=== PATIENT | male | born 1960 | race Caucasian/White ===

== ENCOUNTER → 2017-09-29 14:27 | Outpatient (CLI) | payer OTHER, SELFPAY ==
--- NOTE | 2017-09-29 14:53 | RAD_ITS ---
STUDY: X-RAY - LEFT HAND REASON FOR EXAM: Male, 57 years old. Second metacarpal phalangeal joint pain a few weeks post injury. TECHNIQUE: 3 view(s) of the hand. COMPARISON: None. FINDINGS: Normal radiocarpal articulation. Normal distal radioulnar joint. Normal visualized carpal bones. Normal carpal articulations Normal carpometacarpal articulation of the thumb. Normal second through fifth carpometacarpal joints. Normal metacarpi. Normal metacarpophalangeal joint of the thumb. Normal interphalangeal joint of the thumb. Normal proximal and distal phalanges of the thumb. Normal metacarpophalangeal joints of the second through fifth fingers. Normal proximal and distal interphalangeal joints of the second through fifth fingers. Normal phalanges of the second through fifth fingers. The soft tissue structures are unremarkable. There is no demonstrated fracture. RAD/Hand Min 3 Views IMPRESSION: Normal x-ray examination of the left hand. Electronically Signed: Gio Freitas MD at 19:14 EDT , Service support ,
== END ==
PROVIDERS: Family Provider Internal Medicine; PCP Internal Medicine; Visit Provider Internal Medicine
DX: M79.642 Pain in left hand (principal)
CPT/HCPCS: 73130

== ENCOUNTER → 2017-11-23 15:10 | Outpatient (CLI) | payer OTHER, SELFPAY ==
[2017-11-23 18:02] LABS: Thyroid Stim Hormone (TSH) 5.15 uIU/mL (0.358-3.74)
== END ==
PROVIDERS: Family Provider Internal Medicine; PCP Internal Medicine; Visit Provider Internal Medicine
DX: E03.9 Hypothyroidism, unspecified (principal)
CPT/HCPCS: 36415; 84443

== ENCOUNTER → 2019-03-24 06:33 | Outpatient (CLI) | payer OTHER, SELFPAY ==
--- NOTE | 2019-03-25 13:49 | STRESSREP ---
Stress Test Report Date: 03/25/2019 Procedure: Exercise tolerance test/imaging study Indications: Chest pain Consent: Per the patient Procedure: The patient exercised on a Alex protocol for 10 minutes achieving a peak heart rate of 166 bpm (102 % predicted maximal heart rate) with a peak blood pressure 164/76 mmHg and a peak MET capacity of 11.6 METs. The baseline ECG demonstrated normal sinus rhythm. The peak exercise ECG demonstrated no significant ischemic changes. EKG during recovery revealed no significant ischemic changes [There were no cardiac dysrhythmias pretest, during exercise, or recovery]. The functional capacity was considered excellent for age. There was [no complaint of chest discomfort during exercise or recovery]. The examination was discontinued secondary to calf pain. Impression: 1. Technically adequate (percent predicted maximal heart rate greater than 85%) exercise tolerance test 2. Stress test is negative for exercise-induced EKG changes of ischemia 3. The test test is negative for exercise-induced chest pain 4. Functional capacity is excellent for age 5. Nuclear images pending Myocardial perfusion imaging study: Technique: The patient was injected with 10 mCi of technetium 99m Cardiolite and subsequently rest SPECT Cardiolite nuclear imaging was obtained in the horizontal long, vertical long, and short axis views. The patient exercised on a Alex protocol. Please see above for details. The patient was injected with 36 mCi of technetium 99m Cardiolite and subsequently stress SPECT Cardiolite nuclear imaging was obtained in the horizontal long, vertical long, and short axis views. A gated Cardiolite study at peak stress was obtained. Interpretation: Rest and stress SPECT Cardiolite nuclear imaging status post realignment, normalization, and attenuation correction, demonstrates normal myocardial radioisotope uptake at rest. On the stress images there is mildly decreased radioisotope uptake in the apex. This is suggestive of mild apical ischemia. The gated Cardiolite study demonstrates mild apical hypokinesis. The reported LVEF is 54 %. Impression: 1. There is mild apical ischemia. 2. The gated Cardiolite study reports an LVEF of 54 %. This note was generated with [employer] software. It may contain incorrect words, spelling, and punctuation that were not noted in checking the note before signing.
== END ==
PROVIDERS: Family Provider Internal Medicine; PCP Internal Medicine; Referring Provider Internal Medicine; Visit Provider Internal Medicine
DX: R07.9 Chest pain, unspecified (principal)
CPT/HCPCS: 78452; 93017; A9500; A4216

== ENCOUNTER → 2019-04-11 15:06 | Outpatient (CLI) | payer OTHER, SELFPAY ==
[2019-04-11 17:32] LABS: Absolute Neutrophil Count 4.8 X10^3/uL (2.0-7.7); Basophil# 0.05 X10^3/uL; Basophil% 0.7 % (0-1); Eosinophil# 0.14 X10^3/uL; Hematocrit 38.8 % (40-54); Hemoglobin 12.5 g/dL (13.0-16.5); Lymphocyte % 21.2 % (19-41); Mean Corp Hgb Conc 32.2 g/dL (32-36); Mean Platelet Vol. 11.2 fl (6.2-12.0); Monocyte# 0.58 X10^3/uL; Monocyte% 8.2 % (0-10); NRBC Flagged by Analyzer 0 % (0-5); Neutrophil # 4.79 X10^3/uL (2.7-7.7); Neutrophil % 67.6 % (47-70); Platelet Count 229 K/mm3 (150-450); RBC Distribution Width SD 42.9 fl (35.1-43.9); Red Blood Count 4.31 M/mm3 (4.6-6.2); White Blood Count 7.1 K/mm3 (4.4-11.0)
[2019-04-11 17:52] LABS: Thyroid Stim Hormone (TSH) 6.21 uIU/mL (0.358-3.74)
== END ==
PROVIDERS: Family Provider Internal Medicine; PCP Internal Medicine; Referring Provider Internal Medicine; Visit Provider Internal Medicine
DX: E03.9 Hypothyroidism, unspecified (principal); D64.9 Anemia, unspecified
CPT/HCPCS: 36415; 84443; 85025

== ENCOUNTER → 2019-05-26 09:34 | Outpatient (CLI) | payer OTHER, SELFPAY ==
[2019-04-25 15:18] VITALS: BMI 29.4
--- NOTE | 2019-05-26 09:34 | STE_ITS ---
Reason For Study: ABN NUCLEAR STRESS, CHEST PAIN Stress Results Protocol: Stress Echocardiogram Maximum Predicted HR: 161 bpm Target HR: 137 bpm % Maximum Predicted HR: 103 % DurationHeart Rate Stage (mm:ss) (bpm) BP Comment BASELINE 56 114/74 STUART PROTOCOL- STAGE 1 3:00 93 132/80NO SX TSUART PROTOCOL- STAGE 2 3:00 107 134/80NO SX STUART PROTOCOL- STAGE 3 3:00 130 144/82NO SX STUART PROTOCOL- STAGE 4 2:15 166 148/90LEG FATIGUE, NO CP RECOVERY 76 150/80 Stress Duration: 11:15 mm:ss Maximum Stress HR: 166 bpm Baseline Echocardiogram Findings The estimated ejection fraction is 60 %. Stress Echo Wall motion Data Resting WM Intermediate WM Stress WM Resting Wall Motion No regional wall motion abnormalities noted. EKG Data Normal Sinus rhythm. No significnat ischemic changes. Symptoms with Stress The patient experinced no chest pain . Interpretation Summary The estimated ejection fraction is 60 %. Stress echo is negative for stress induced CP or EKG or Echocardiographic changes of ischemia. Functional capacity is excellent for age. Ordering Physician: Do Herrera Referring Physician: Do Herrera Performed By: Olivia Sevilla, KIM, RVT
== END ==
PROVIDERS: Family Provider Internal Medicine; PCP Internal Medicine; Referring Provider Specialist; Visit Provider Specialist
DX: E78.5 Hyperlipidemia, unspecified (principal); R07.9 Chest pain, unspecified; R94.39 Abnormal result of other cardiovascular function study
CPT/HCPCS: 93017; 93350

== ENCOUNTER 2021-06-20 15:42 | Outpatient (CLI) | payer BC, SELFPAY ==
[2021-06-20 17:43] LABS: Absolute Lymphocyte Count 1.57 X10^3/uL (0.83-4.51); Absolute Neutrophil Count 3.6 X10^3/uL (2.0-7.7); Basophil# 0.05 X10^3/uL; Basophil% 0.8 % (0-1); Eosinophil# 0.31 X10^3/uL; Eosinophils% 4.9 % (0-5); Hematocrit 36.3 % (40-54); Hemoglobin 11.9 g/dL (13.0-16.5); Lymphocyte # 1.57 X10^3/ul (0.83-4.51); Lymphocyte % 24.9 % (19-41); Mean Corp Hgb Conc 32.8 g/dL (32-36); Mean Corpuscular Hgb 28.6 pg (27.0-32.0); Mean Corpuscular Volume 87.3 fL (80-94); Mean Platelet Vol. 10.5 fl (6.2-12.0); Monocyte% 12.7 % (0-10); NRBC Flagged by Analyzer 0 % (0-5); Neutrophil # 3.56 X10^3/uL (2.7-7.7); Neutrophil % 56.5 % (47-70); Platelet Count 290 K/mm3 (150-450); RBC Distribution Width CV 12.1 % (11.6-14.6); RBC Distribution Width SD 39.2 fl (35.1-43.9); Red Blood Count 4.16 M/mm3 (4.6-6.2); White Blood Count 6.3 K/mm3 (4.4-11.0)
[2021-06-20 18:16] LABS: ALB/GLOB Ratio 1.1 RATIO (0.9-2.4); AST(SGOT) 16 U/L (15-37); Alanine Aminotransfer ALT/SGPT 25 U/L (16-61); Albumin, Serum 3.6 g/dL (3.2-5.0); Alkaline Phosphatase 62 U/L (45-117); Anion Gap 5 (5-15); BUN 19 mg/dL (7-18); BUN/Creat Ratio 18.1 RATIO (10-20); Chloride 107 mmol/L (98-107); Cholesterol 168 mg/dL (200); Creatinine, Serum 1.05 mg/dL (0.70-1.30); EST Glomerular Filtration Rate 76 mL/min (>60); Est Glom Filt Rate - Afr Amer 92 mL/min (>60); Globulin 3.2 g/dL (2.2-4.2); Glucose 85 mg/dL (74-106); High Density Lipoprotein 44 mg/dL; PSA,Total - Annual Screen 2.15 ng/mL (0.00-4.00); Potassium 4.4 mmol/L (3.5-5.1); Protein, Total 6.8 g/dL (6.4-8.2); Sodium Level 140 mmol/L (136-145); Thyroid Stim Hormone (TSH) 0.01 uIU/mL (0.358-3.74); Triglycerides 183 mg/dL; Very Low Density Lipoprotein 37 mg/dL (5-40)
[2021-06-22 11:08] LABS: LDL, Direct 120295 96 mg/dL (0-99)
== END 2021-06-20 23:59 | disposition short-term general hospital (02) ==
LOC: MTLAB 15:46
PROVIDERS: PCP Internal Medicine; Referring Provider Internal Medicine; Visit Provider Internal Medicine
DX: E03.9 Hypothyroidism, unspecified (principal); D64.9 Anemia, unspecified; E78.5 Hyperlipidemia, unspecified
CPT/HCPCS: 36415; 80053; 80061; 83721; 84153; 84443; 85025; G0103

== ENCOUNTER 2021-09-02 13:57 | Outpatient (CLI) | payer BC, SELFPAY ==
[2021-09-02 15:44] LABS: Thyroid Stim Hormone (TSH) 0.01 uIU/mL (0.358-3.74)
== END 2021-09-02 23:59 | disposition home or self-care (01) ==
LOC: MTLAB 13:58
PROVIDERS: PCP Internal Medicine; Referring Provider Internal Medicine; Visit Provider Internal Medicine
DX: E03.9 Hypothyroidism, unspecified (principal)
CPT/HCPCS: 36415; 84443

== ENCOUNTER 2021-09-02 15:39 | Outpatient (CLI) | payer BC, SELFPAY ==
[2021-09-02 16:02] LABS: Absolute Lymphocyte Count 1.54 X10^3/uL (0.83-4.51); Absolute Neutrophil Count 2.9 X10^3/uL (2.0-7.7); Basophil# 0.05 X10^3/uL; Basophil% 0.9 % (0-1); Eosinophil# 0.19 X10^3/uL; Eosinophils% 3.4 % (0-5); Lymphocyte # 1.54 X10^3/ul (0.83-4.51); Lymphocyte % 27.5 % (19-41); Mean Corp Hgb Conc 32.4 g/dL (32-36); Mean Corpuscular Hgb 27.4 pg (27.0-32.0); Mean Corpuscular Volume 84.5 fL (80-94); Mean Platelet Vol. 10.4 fl (6.2-12.0); Monocyte# 0.89 X10^3/uL; Monocyte% 15.9 % (0-10); NRBC Flagged by Analyzer 0 % (0-5); Neutrophil # 2.93 X10^3/uL (2.7-7.7); Neutrophil % 52.1 % (47-70); Platelet Count 249 K/mm3 (150-450); RBC Distribution Width CV 12.8 % (11.6-14.6); RBC Distribution Width SD 38.8 fl (35.1-43.9); RET-HE 31.4 pg (30-35); Red Blood Count 4.38 M/mm3 (4.6-6.2); Reticulocyte Count 0.97 % (0.5-1.5); White Blood Count 5.6 K/mm3 (4.4-11.0)
[2021-09-02 16:56] LABS: Anion Gap 4 (5-15); BUN 20 mg/dL (7-18); Calcium,Total 8.8 mg/dL (8.5-10.1); Chloride 106 mmol/L (98-107); Creatinine, Serum 1.05 mg/dL (0.70-1.30); EST Glomerular Filtration Rate 76 mL/min (>60); Est Glom Filt Rate - Afr Amer 92 mL/min (>60); Ferritin 8 ng/mL (26-388); Glucose 88 mg/dL (74-106); Iron 77 ug/dL (65-175); Iron Binding Capacity,Total 390 ug/dL (250-450); LDH 197 U/L (87-241); PERCENT IRON SATURATION 19.7 % (15.0-55.0); Potassium 4.1 mmol/L (3.5-5.1); Sodium Level 140 mmol/L (136-145)
== END 2021-09-02 23:59 | disposition home or self-care (01) ==
LOC: LAB 15:40
PROVIDERS: PCP Internal Medicine; Visit Provider Internal Medicine Gastroenterology
DX: D64.9 Anemia, unspecified (principal)
CPT/HCPCS: 36415; 80048; 82728; 83540; 83550; 83615; 85025; 85045

== ENCOUNTER 2021-09-26 10:33 | Day surgery (SDC) | payer BC, SELFPAY ==
[2021-09-26] VITALS (9 sets, daily range): BP systolic 87–130; BP diastolic 51–90; PULSE 51–71; RESP 16; TEMP 36.1–36.3; O2SAT 94–100; BMI 27.8
[2021-09-26] MEDS: Lactated Ringers 1,000 ML 15 ML IV (10:55)
--- NOTE | 2021-09-26 11:45 | COLBX_PTH ---
PATIENT: CHINYERE RIVERA LOC: EN U#:[id number] AGE/SX: 61/M ROOM: RE09/26/[address]: Dr. Ellis Flynn DO : 1960 BED: DIS: 09/26/2021 SPEC #: [id number] RECD: 09/26/21 13:15 STATUS: JAQUELIN RELisa #: [id number] LEANDRO: 09/26/21 11:[address]: Ellis Flynn DEPT: SURGICAL PATHOLOGY RECD BY: Trina Mahmood ENTERED: 09/26/21 13:40 SP TYPE: COLON BX OTHR DR: Lucho Gastelum Tissues: A - COLON BIOPSY B - Rectum, NOS Procedures: Surgery Specimen Level IV HEADER OPERATION: Colonoscopy (MAC) with biopsies PRE-OP DIAGNOSIS: Anemia TISSUE SUBMITTED: A ? Random colon biopsy, B ? Rectal polyp MICROSCOPIC DIAGNOSIS A. Colon, random biopsy: Active colitis. See comment. B. Rectal polyp, biopsy: Fragments of benign colonic mucosa. See comment. AM:neel 09/27/2021 COMMENT A. Sections show cryptitis, crypt abscesses and non-necrotizing granulomas. Fissuring ulcers are not seen. Transmural lymphoid aggregates are not present. Clinical correlation is necessary. B. Neither hyperplastic nor adenomatous change is seen. Clinical correlation is suggested. MICROSCOPIC DESCRIPTION Slides are reviewed. GROSS DESCRIPTION A - Received in fixative is one container labeled with the patient's name and designated random colon biopsy. The specimen consists of multiple irregular fragments of light haywood soft tissue that in aggregate measure 1.2 x 0.3 x 0.1 cm. The specimen is totally submitted in one cassette. B - Received in fixative is one container labeled with the patient's name and designated rectal polyp. The specimen consists of one irregular fragment of light haywood soft tissue that measures 0.3 x 0.3 x 0.1 cm. The specimen is totally submitted in one cassette. / SJ:neel 09/26/2021 TC:2 [facility]: [id number] x2
--- NOTE | 2021-09-26 12:00 | PCM.HP.BLA ---
History and Physical Date of Admission: 09/26/21 61 M who presents to the office today for Initial consultation. Tony established with this clinic 09.02.21 by suggestion of PCP. He has a history of anemia for which he follows with Dr. Anurag Toribio, colorectal surgeon with [facility] and hematology Dr. Russ with [facility]. Dr. Russ stopped iron supplement as he was not having anemic difficulties. Follows with Dr. Guevara for abnormal TSH, last draw . and dose reduced in . Additional medical history include hypothyroidism, sleep apnea, anxiety, constipation. Colonoscopy performed 07.07.11 and another in 2017 finding diverticulosis and a non-cancerous polyp, the second is reported by him to be normal. EGD performed 11.20.14 finding gastritis. Hemoglobin levels tend to fluctuate. Most recent hemoglobin 11.9 06.20.21. Denies black stools. Reports rectal bleeding with ?fresh blood on my stool? in . PCP thought it may be r/t hard stools or hemorrhoids. Hemorrhoid possibility evaluated and not an issue. Loose stools triggered by spicy foods. Reports normal stools most of the week with two hard stool a week that he does not feel needs to be addressed at this time. reports that he smells different, not able to pinpoint change. ROS Const Constitutional: No anorexia, fatigue, fever(s), weight change or sleep problems Eyes Eyes: No change in vision ENT ENT: No abnormal hearing, difficulty swallowing, mouth lesions, tongue swelling or throat swelling Resp Respiratory: No cough or shortness of breath Cardio Cardiology: No chest pain at rest, chest pain with exertion, shortness of breath or dyspnea on exertion Gastro GI: No difficulty swallowing Genitourinary Male: No difficulty urinating or burning urination Musc Musculoskeletal: No joint pain, joint swelling, muscle weakness or decreased muscle mass Skin Skin: No hair loss in leg, yellowing of the eye, itchy eyes, rash, skin ulcer or skin swelling Neuro Neurology: No abnormal hearing, abnormal movements, confusion, unsteady gait/balance or memory loss Psych Psychiatric: No anxiety, No confusion and No memory loss Endo Endocrine: No fatigue or weight change Aller/Imm Allergy/Immunologic: No itchy eyes, throat swelling or tongue swelling Augusto/Lymp Hematologic/Lymphatic: No easy bleeding, easy bruising or enlarged lymph nodes Exam Const General: cooperative and comfortable Nutritional Appearance: average body habitus and well nourished [facility] Head: normal to inspection Ears: hearing grossly normal bilaterally Nose: external nose normal Face and sinus: normal facial exam Mouth: oral mucosae normal Throat: posterior oropharynx normal Eyes General: appearance normal, both eyes and all related structures Neck Neck: normal visual inspection Chest Chest palpation & inspection: normal inspection of the chest and normal palpation of entire chest wall Resp Effort & Inspection: normal respiratory effort Auscultation: Bilateral: Clear to Auscultation Cardio Palpation: normal PMI Rate: regular rate Rhythm: regular rhythm GI Inspection: normal to inspection Auscultation: normal bowel sounds Percussion: normal to percussion Palpation: no hepatosplenomegaly Skin General: no rashes or lesions noted Neuro General: patient alert Extrem General: normal to inspection Psych Affect: normal affect Quality Reporting Tobacco Screening ([facility] 138) Smoking Status: Never smoker Assessment and Plan Assessment and Plan (1) Anemia: Status: Acute Orders: Orders: Basic Metabolic Profile (BMP) Today Ferritin Today Iron+Iron Binding Capacity Today LDH Today CBC W/Diff, Automated Today Retic Panel Count Today Plan - Dr. Corral Friend, DO: Diagnosis for his iron deficiency anemia is AVMs of the stomach, small bowel or colon. Peptic ulcer disease, neoplasia, H. pylori associated gastritis, celiac disease. Patient undergo EGD and colonoscopy for evaluation of his upper lower GI tract. He should also check ferritin, iron, TIBC, LDH, CBC with differential and reticulocyes. Patient also had some lower GI bleeding which I suspect is from either internal hemorrhoids or diverticular disease. We will evaluate the status colonoscopy. I have re-examined the patient. There are no clinical changes since date of exam.
--- NOTE | 2021-09-26 12:46 | OP.COLON_ITS ---
Patient Name: Tony Park Procedure Date: 09/26/2021 12:01 PM Date of : 1960 Age: 61 Procedure: Colonoscopy Indications: Screening for colorectal malignant neoplasm Providers: Ellis Flynn DO Medicines: Sedation Required Anesthesia Staff Assistance Patient Profile: This is a 61 year old male. Refer to note in patient chart for documentation of history and physical. Last Colonoscopy: several years ago. Complications: No immediate complications. Procedure: Pre-Anesthesia Assessment: - Prior to the procedure, a History and Physical was performed, and patient medications and allergies were reviewed. The patient is competent. The risks and benefits of the procedure and the sedation options and risks were discussed with the patient. All questions were answered and informed consent was obtained. Patient identification and proposed procedure were verified by the physician in the pre-procedure area. Mental Status Examination: alert and oriented. Airway Examination: normal oropharyngeal airway and neck mobility. Respiratory Examination: clear to auscultation. CV Examination: normal. Prophylactic Antibiotics: The patient does not require prophylactic antibiotics. Prior Anticoagulants: The patient has taken no previous anticoagulant or antiplatelet agents. After reviewing the risks and benefits, the patient was deemed in satisfactory condition to undergo the procedure. The anesthesia plan was to use moderate sedation / analgesia (conscious sedation). Immediately prior to administration of medications, the patient was re-assessed for adequacy to receive sedatives. The heart rate, respiratory rate, oxygen saturations, blood pressure, adequacy of pulmonary ventilation, and response to care were monitored throughout the procedure. The physical status of the patient was re-assessed after the procedure. After I obtained informed consent, the scope was passed under direct vision. Throughout the procedure, the patient's blood pressure, pulse, and oxygen saturations were monitored continuously. The Colonoscope was introduced through the anus and advanced to the terminal ileum. The colonoscopy was performed without difficulty. The patient tolerated the procedure well. The quality of the bowel preparation was adequate. Moderate Sedation: Moderate (conscious) sedation was administered by the endoscopy nurse and supervised by the endoscopist. The patient's oxygen saturation, heart rate, blood pressure and response to care were monitored. Total physician intraservice time was 15 minutes. Scope In: 12:14:11 PM Scope Withdrawal Time 0 hours 15 minutes 12 seconds Scope Out: 12:32:50 PM Total Procedure Duration Time 0 hours 18 minutes 39 seconds Findings: The perianal and digital rectal examinations were normal. A 5 mm polyp was found in the rectum. The polyp was sessile. The polyp was removed with a cold snare. Resection and retrieval were complete. Verification of patient identification for the specimen was done. Estimated blood loss was minimal. Diffuse mild inflammation characterized by congestion (edema) was found in the sigmoid colon, in the descending colon, at the splenic flexure, in the transverse colon and at the hepatic flexure. Biopsies were taken with a cold forceps for histology. Verification of patient identification for the specimen was done. Estimated blood loss was minimal. Impression: - One 5 mm polyp in the rectum, removed with a cold snare. Resected and retrieved. - Diffuse mild inflammation was found in the sigmoid colon, in the descending colon, at the splenic flexure, in the transverse colon and at the hepatic flexure secondary to colitis. Biopsied. Recommendation: - Discharge patient to home. - Resume previous diet daily. - Continue present medications. - Await pathology results. - Repeat colonoscopy in 5 years for surveillance. - Return to GI office. Procedure Code(s): --- Professional --- 09024, Colonoscopy, flexible; with removal of tumor(s), polyp(s), or other lesion(s) by snare technique 87299, 59, Colonoscopy, flexible; with biopsy, single or multiple G0500, Moderate sedation services provided by the same physician or other qualified health career services coordinator performing a gastrointestinal endoscopic service that sedation supports, requiring the presence of an independent trained observer to assist in the monitoring of the patient's level of consciousness and physiological status; initial 15 minutes of intra-service time; patient age 5 years or older (additional time may be reported with 45553, as appropriate) CPT copyright 2017 [employer]. All rights reserved. The codes documented in this report are preliminary and upon band splitter review may be revised to meet current compliance requirements. Ellis Flynn DO 09/26/2021 12:46:19 PM This report has been signed electronically. Number of Addenda: 1 Note Initiated On: 09/26/2021 12:01 PM Addendum Number: 1 Addendum Date: 03/06/2022 6:28:06 AM MAC was used as sedation for this procedure. Ellis Flynn DO 03/06/2022 6:28:17 AM This report has been signed electronically.
--- NOTE | 2021-09-26 12:47 | OP.CCLET_ITS ---
03/06/2022 Lucho Gastelum Re : Colonoscopy procedure for Tony Park Dear Oriana This procedure was performed on September. My impressions and recommendations are as follows: Impressions : - One 5 mm polyp in the rectum, removed with a cold snare. Resected and retrieved. - Diffuse mild inflammation was found in the sigmoid colon, in the descending colon, at the splenic flexure, in the transverse colon and at the hepatic flexure secondary to colitis. Biopsied. Recommendations : - Discharge patient to home. - Resume previous diet daily. - Continue present medications. - Await pathology results. - Repeat colonoscopy in 5 years for surveillance. - Return to GI office. My findings are described in the full procedure note, which is enclosed. If I can be of further assistance, please feel free to contact me at . Sincerely, Ellis Flynn, 09/26/2021 12:46:19 PM This report has been signed electronically.
== END 2021-09-26 13:54 | disposition home or self-care (01) ==
LOC: EN 10:39 → AC 11:58
PROVIDERS: PCP Internal Medicine; Referring Provider Internal Medicine; Visit Provider Internal Medicine Gastroenterology
PROC: 0DJD8ZZ Inspection of Lower Intestinal Tract, Via Natural or Artificial Opening Endoscopic (ICD-10-PCS; CPT 45378; principal; 2021-09-26 11:40)
DX: Z12.11 Encounter for screening for malignant neoplasm of colon (principal); K62.1 Rectal polyp; K52.9 Noninfective gastroenteritis and colitis, unspecified; D50.9 Iron deficiency anemia, unspecified; E03.9 Hypothyroidism, unspecified; G47.30 Sleep apnea, unspecified; F41.9 Anxiety disorder, unspecified; F32.A Depression, unspecified; G25.81 Restless legs syndrome; Z79.899 Other long term (current) drug therapy
CPT/HCPCS: 45385; 45380; 88305; J7120

== ENCOUNTER → 2021-10-08 | Outpatient (CLI) | payer BC, SELFPAY ==
[2021-10-08 17:44] LABS: Absolute Lymphocyte Count 1.44 X10^3/uL (0.83-4.51); Absolute Neutrophil Count 3.4 X10^3/uL (2.0-7.7); Basophil# 0.05 X10^3/uL; Basophil% 0.9 % (0-1); Eosinophil# 0.21 X10^3/uL; Eosinophils% 3.6 % (0-5); Hematocrit 37.5 % (40-54); Lymphocyte # 1.44 X10^3/ul (0.83-4.51); Lymphocyte % 24.7 % (19-41); Mean Corpuscular Hgb 27.6 pg (27.0-32.0); Mean Corpuscular Volume 86.4 fL (80-94); Mean Platelet Vol. 10.9 fl (6.2-12.0); Monocyte# 0.73 X10^3/uL; Monocyte% 12.5 % (0-10); NRBC Flagged by Analyzer 0 % (0-5); Neutrophil # 3.39 X10^3/uL (2.7-7.7); Platelet Count 234 K/mm3 (150-450); RBC Distribution Width CV 13.3 % (11.6-14.6); RBC Distribution Width SD 42.1 fl (35.1-43.9); Red Blood Count 4.34 M/mm3 (4.6-6.2); White Blood Count 5.8 K/mm3 (4.4-11.0)
[2021-10-08 18:15] LABS: ALB/GLOB Ratio 1.1 RATIO (0.9-2.4); AST(SGOT) 21 U/L (15-37); Alanine Aminotransfer ALT/SGPT 32 U/L (16-61); Albumin, Serum 3.7 g/dL (3.2-5.0); Alkaline Phosphatase 58 U/L (45-117); Anion Gap 6 (5-15); BUN 19 mg/dL (7-18); BUN/Creat Ratio 16.8 RATIO (10-20); CRP < 2.90 mg/L (0.0-3.0); Calcium,Total 8.8 mg/dL (8.5-10.1); Chloride 105 mmol/L (98-107); Creatinine, Serum 1.13 mg/dL (0.70-1.30); EST Glomerular Filtration Rate 70 mL/min (>60); Est Glom Filt Rate - Afr Amer 85 mL/min (>60); Globulin 3.3 g/dL (2.2-4.2); Glucose 85 mg/dL (74-106); LDH 200 U/L (87-241); Potassium 4.3 mmol/L (3.5-5.1); Sodium Level 139 mmol/L (136-145)
[2021-10-08 18:48] LABS: Erythrocyte Sedimentation Rate 7 mm/hr (0-20)
[2021-10-10 15:09] LABS: Anti-Centromere B Ab <0.2 AI (0.0-0.9); Anti-Chromatin <0.2 AI (0.0-0.9); Anti-Jo <0.2 AI (0.0-0.9); Anti-Scleroderma-70 AB <0.2 AI (0.0-0.9); RNP Ab 0.3 AI (0.0-0.9); SJOGREN'S Anti-SS-A test < 0.2 AI (0.0-0.9); SJOGREN'S Anti-SS-B test < 0.2 AI (0.0-0.9); Smith Ab <0.2 AI (0.0-0.9)
[2021-10-10 17:18] LABS: Calprotectin, Stool 163 ug/g (0-120)
[2021-10-10 17:18] LABS: Anti-dsDNA Ab 6 IU/mL (0-9)
[2021-10-17 18:08] LABS: Albumin 3.8 g/dL (2.9-4.4); Alpha-1-Globulins 0.2 g/dL (0.0-0.4); Alpha-2-Globulins 0.6 g/dL (0.4-1.0); Cytoplasmic Ab (C-ANCA) <1:20 titer (Neg:<1:20); Endomysial Antibody IgA Negative (Negative); Gamma Globulin 0.9 g/dL (0.4-1.8); Immunoglobulin A 86 mg/dL (61-437); Immunoglobulin E 7 IU/mL (6-495); Immunoglobulin G 937 mg/dL (603-1613); Immunoglobulin M 80 mg/dL (20-172); PROEL- TOTAL PROTEIN 6.5 g/dL (6.0-8.5)
[2021-10-17 19:53] LABS: Perinuclear Ab (P-ANCA) <1:20 titer (Neg:<1:20); t-Transglutaminase IgA <2 U/mL (0-3)
== END | disposition home or self-care (01) ==
PROVIDERS: PCP Internal Medicine; Referring Provider Internal Medicine Gastroenterology; Visit Provider Internal Medicine Gastroenterology
DX: K50.90 Crohn's disease, unspecified, without complications (principal)
CPT/HCPCS: 36415; 80053; 82784; 82785; 83516; 83615; 83630; 83993; 84165; 85025; 85652; 86140; 86225; 86235; 86255; 86256; 86334

== ENCOUNTER → 2021-11-06 | Outpatient (CLI) | payer BC, SELFPAY ==
[2021-11-06 17:56] LABS: Thyroid Stim Hormone (TSH) 0.01 uIU/mL (0.358-3.74)
== END | disposition home or self-care (01) ==
LOC: MTLAB 16:15
PROVIDERS: PCP Internal Medicine; Referring Provider Internal Medicine; Visit Provider Internal Medicine
DX: E03.9 Hypothyroidism, unspecified (principal)
CPT/HCPCS: 36415; 84443

== ENCOUNTER 2021-12-04 10:32 | Day surgery (SDC) | payer BC, SELFPAY ==
[2021-12-04] VITALS (7 sets, daily range): BP systolic 95–121; BP diastolic 61–85; PULSE 50–60; RESP 16; TEMP 36.1–36.5; O2SAT 95–98; BMI 28.0
--- NOTE | 2021-12-04 10:51 | HP.PCM_ITS ---
History and Physical Date of Admission: 12/04/21 ?CHINYERE RIVERA, is a 61 M who presents to the office today for Initial consultation. Chinyere established with this clinic 09.02.21 by suggestion of PCP. He has a history of anemia for which he follows with Dr. Anurag Toribio, colorectal surgeon with [facility] and hematology Dr. Russ with [facility]. Dr. Russ stopped iron supplement as he was not having anemic difficulties. Follows with Dr. Guevara for abnormal TSH, last draw . and dose reduced in . Additional medical history include hypothyroidism, sleep apnea, anxiety, constipation. Colonoscopy performed 07.07.11 and another in 2017 finding diverticulosis and a non-cancerous polyp, the second is reported by him to be normal. EGD performed 11.20.14 finding gastritis. Hemoglobin levels tend to fluctuate. Most recent hemoglobin 11.9 06.20.21. Denies black stools. Reports rectal bleeding with ?fresh blood on my stool? in . PCP thought it may be r/t hard stools or hemorrhoids. Hemorrhoid possibility evaluated and not an issue. Loose stools triggered by spicy foods. Reports normal stools most of the week with two hard stool a week that he does not feel needs to be addressed at this time. reports that he smells different, not able to pinpoint change. ROS Const Constitutional: No anorexia, fatigue, fever(s), weight change or sleep problems Eyes Eyes: No change in vision ENT ENT: No abnormal hearing, difficulty swallowing, mouth lesions, tongue swelling or throat swelling Resp Respiratory: No cough or shortness of breath Cardio Cardiology: No chest pain at rest, chest pain with exertion, shortness of breath or dyspnea on exertion Gastro GI: No difficulty swallowing Genitourinary Male: No difficulty urinating or burning urination Musc Musculoskeletal: No joint pain, joint swelling, muscle weakness or decreased muscle mass Skin Skin: No hair loss in leg, yellowing of the eye, itchy eyes, rash, skin ulcer or skin swelling Neuro Neurology: No abnormal hearing, abnormal movements, confusion, unsteady gait/balance or memory loss Psych Psychiatric: No anxiety, No confusion and No memory loss Endo Endocrine: No fatigue or weight change Aller/Imm Allergy/Immunologic: No itchy eyes, throat swelling or tongue swelling Augusto/Lymp Hematologic/Lymphatic: No easy bleeding, easy bruising or enlarged lymph nodes Exam Const General: cooperative and comfortable Nutritional Appearance: average body habitus and well nourished HENMT Head: normal to inspection Ears: hearing grossly normal bilaterally Nose: external nose normal Face and sinus: normal facial exam Mouth: oral mucosae normal Throat: posterior oropharynx normal Eyes General: appearance normal, both eyes and all related structures Neck Neck: normal visual inspection Chest Chest palpation & inspection: normal inspection of the chest and normal palpation of entire chest wall Resp Effort & Inspection: normal respiratory effort Auscultation: Bilateral: Clear to Auscultation Cardio Palpation: normal PMI Rate: regular rate Rhythm: regular rhythm GI Inspection: normal to inspection Auscultation: normal bowel sounds Percussion: normal to percussion Palpation: no hepatosplenomegaly Skin General: no rashes or lesions noted Neuro General: patient alert Extrem General: normal to inspection Psych Affect: normal affect Quality Reporting Tobacco Screening ([facility] 138) Smoking Status: Never smoker Assessment and Plan Assessment and Plan (1) Anemia: ?Status:?Acute ? ? ? Orders:?Orders: ? Basic Metabolic Profile (BMP) Today ? ? ? Ferritin Today ? ? ? Iron+Iron Binding Capacity Today ? ? ? LDH Today ? ? ? CBC W/Diff, Automated Today ? ? ? Retic Panel Count Today ?Plan - Dr. Corral Friend, DO: Diagnosis for his iron deficiency anemia is AVMs of the stomach, small bowel or colon.? Peptic ulcer disease, neoplasia, H. pylori associated gastritis, celiac disease.? Patient undergo EGD and colonoscopy for evaluation of his upper lower GI tract.? He should also check ferritin, iron, TIBC, LDH, CBC with differential and reticulocyes.? Patient also had some lower GI bleeding which I suspect is from either internal hemorrhoids or diverticular disease.? We will evaluate the status colonoscopy. I have re-examined the patient. There are no clinical changes since date of exam.
[2021-12-04] MEDS: Lactated Ringers 1,000 ML 15 ML IV (11:02)
--- NOTE | 2021-12-04 11:45 | EGD_PTH ---
PATIENT: CHINYERE RIVERA LOC: EN U#:[id number] AGE/SX: 61/M ROOM: RE12/04/[address]: Dr. Ellis Flynn DO : 1960 BED: DIS: 12/04/2021 SPEC #: [id number] RECD: 12/04/21 13:28 STATUS: JAQUELIN RELisa #: [id number] LEANDRO: 12/04/21 11:[address]: Ellis Flynn DEPT: SURGICAL PATHOLOGY RECD BY: Dejah Shepard ENTERED: 12/04/21 14:03 SP TYPE: EGD BIOPSY OT DR: Lucho Gastelum Tissues: Esophagus, NOS Procedures: Special Stain Group II Surgery Specimen Level IV Alcian Blue/PAS (control) HEADER OPERATION: EGD with Gold probe cauterization and biopsy (MAC) PRE-OP DIAGNOSIS: Anemia TISSUE SUBMITTED: Distal esophagus MICROSCOPIC DIAGNOSIS Distal esophagus, biopsy: Gastroesophageal junctional mucosa with mild chronic inflammation. Focal changes of reflux. No evidence of goblet cell metaplasia. See comment. AM:neel 12/05/2021 COMMENT Alcian blue/PAS stain with matched control supports the above diagnosis. MICROSCOPIC DESCRIPTION Slides are reviewed. GROSS DESCRIPTION Received in fixative is one container labeled with the patient's name and designated distal esophagus. The specimen consists of two irregular fragments of light haywood soft tissue that in aggregate measure 0.7 x 0.4 x 0.1 cm. The specimen is totally submitted in one cassette. / SJ:neel 12/04/2021 TC:5 CPT: 09520, 14755
--- NOTE | 2021-12-04 12:47 | OP.EGD_ITS ---
Patient Name: Tony Park Procedure Date: 12/04/2021 12:22 PM Date of : 1960 Age: 61 Procedure: Upper GI endoscopy Indications: Iron deficiency anemia Providers: Ellis Flynn DO Medicines: Monitored Anesthesia Care Patient Profile: This is a 61 year old male. Refer to note in patient chart for documentation of history and physical. Patient has symptoms. Complications: No immediate complications. Procedure: Pre-Anesthesia Assessment: - Prior to the procedure, a History and Physical was performed, and patient medications and allergies were reviewed. The patient is competent. The risks and benefits of the procedure and the sedation options and risks were discussed with the patient. All questions were answered and informed consent was obtained. Patient identification and proposed procedure were verified by the physician in the pre-procedure area. Mental Status Examination: alert and oriented. Airway Examination: normal oropharyngeal airway and neck mobility. Respiratory Examination: clear to auscultation. CV Examination: normal. Prophylactic Antibiotics: The patient does not require prophylactic antibiotics. Prior Anticoagulants: The patient has taken no previous anticoagulant or antiplatelet agents. ASA Grade Assessment: II - A patient with mild systemic disease. After reviewing the risks and benefits, the patient was deemed in satisfactory condition to undergo the procedure. The anesthesia plan was to use moderate sedation / analgesia (conscious sedation). Immediately prior to administration of medications, the patient was re-assessed for adequacy to receive sedatives. The heart rate, respiratory rate, oxygen saturations, blood pressure, adequacy of pulmonary ventilation, and response to care were monitored throughout the procedure. The physical status of the patient was re-assessed after the procedure. After obtaining informed consent, the endoscope was passed under direct vision. Throughout the procedure, the patient's blood pressure, pulse, and oxygen saturations were monitored continuously. The Colonoscope was introduced through the mouth, and advanced to the jejunum. The upper GI endoscopy was accomplished without difficulty. The patient tolerated the procedure well. Scope In: 12:24:44 PM Scope Out: 12:37:13 PM Total Procedure Duration Time 0 hours 12 minutes 29 seconds Findings: The Z-line was irregular and was found 38 cm from the incisors. This was biopsied with a cold forceps for histology. Verification of patient identification for the specimen was done. Estimated blood loss was minimal. Two 5 mm bleeding angioectasias were found in the gastric fundus. Coagulation for hemostasis using heater probe was successful. Estimated blood loss was minimal. Two 5 mm angiodysplastic lesions without bleeding were found in the third portion of the duodenum. Coagulation for bleeding prevention using heater probe was successful. Estimated blood loss was minimal. The examined jejunum was normal. Impression: - Z-line irregular, 38 cm from the incisors. Biopsied. - Two bleeding angioectasias in the stomach. Treated with a heater probe. 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 Treated with a heater probe. - Normal examined jejunum. Recommendation: - Discharge patient to home. - Resume previous diet. - Continue present medications. Procedure Code(s): --- Professional --- 21345, 59, Esophagogastroduodenoscopy, flexible, transoral; with control of bleeding, any method 42690, 51, Esophagogastroduodenoscopy, flexible, transoral; with biopsy, single or multiple CPT copyright 2017 [employer]. All rights reserved. The codes documented in this report are preliminary and upon medical coder review may be revised to meet current compliance requirements. Ellis Flynn DO 12/04/2021 12:47:35 PM This report has been signed electronically. Number of Addenda: 1 Note Initiated On: 12/04/2021 12:22 PM Addendum Number: 1 Addendum Date: 03/11/2022 6:01:30 AM MAC was used as sedation for this procedure. Ellis Flynn DO 03/11/2022 6:01:37 AM This report has been signed electronically.
--- NOTE | 2021-12-04 12:48 | OP.CCLET_ITS ---
03/11/2022 Lucho Gastelum Re : Upper GI endoscopy procedure for Tony Park Dear Oriana This procedure was performed on Saturday, December 04, 2021. My impressions and recommendations are as follows: Impressions : - Z-line irregular, 38 cm from the incisors. Biopsied. - Two bleeding angioectasias in the stomach. Treated with a heater probe. 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 Treated with a heater probe. - Normal examined jejunum. Recommendations : - Discharge patient to home. - Resume previous diet. - Continue present medications. My findings are described in the full procedure note, which is enclosed. If I can be of further assistance, please feel free to contact me at . Sincerely, Ellis Friend, 12/04/2021 12:47:35 PM This report has been signed electronically.
== END 2021-12-04 13:31 | disposition home or self-care (01) ==
LOC: EN 10:39 → AC 10:43
PROVIDERS: PCP Internal Medicine; Referring Provider Internal Medicine; Visit Provider Internal Medicine Gastroenterology
PROC: 0DJ08ZZ Inspection of Upper Intestinal Tract, Via Natural or Artificial Opening Endoscopic (ICD-10-PCS; CPT 43235; principal; 2021-12-04 11:40)
DX: D64.9 Anemia, unspecified (principal); K31.9 Disease of stomach and duodenum, unspecified; G47.30 Sleep apnea, unspecified; E03.9 Hypothyroidism, unspecified; F41.9 Anxiety disorder, unspecified; F32.A Depression, unspecified; Z79.899 Other long term (current) drug therapy
CPT/HCPCS: 43239; 43255; 88305; 88313; J7120; J2405

== ENCOUNTER → 2022-02-28 | Outpatient (CLI) | payer BC, SELFPAY ==
[2022-02-28 17:58] LABS: Absolute Lymphocyte Count 1.35 X10^3/uL (0.83-4.51); Absolute Neutrophil Count 3.4 X10^3/uL (2.0-7.7); Basophil# 0.06 X10^3/uL; Eosinophil# 0.38 X10^3/uL; Eosinophils% 6.4 % (0-5); Hematocrit 38.9 % (40-54); Hemoglobin 12.7 g/dL (13.0-16.5); Lymphocyte # 1.35 X10^3/ul (0.83-4.51); Lymphocyte % 22.8 % (19-41); Mean Corp Hgb Conc 32.6 g/dL (32-36); Mean Corpuscular Hgb 30.1 pg (27.0-32.0); Mean Corpuscular Volume 92.2 fL (80-94); Monocyte# 0.71 X10^3/uL; NRBC Flagged by Analyzer 0 % (0-5); Neutrophil # 3.41 X10^3/uL (2.7-7.7); Neutrophil % 57.6 % (47-70); Platelet Count 206 K/mm3 (150-450); RBC Distribution Width CV 14.3 % (11.6-14.6); RBC Distribution Width SD 48.6 fl (35.1-43.9); Red Blood Count 4.22 M/mm3 (4.6-6.2); White Blood Count 5.9 K/mm3 (4.4-11.0)
[2022-02-28 18:18] LABS: Iron 69 ug/dL (65-175); Iron Binding Capacity,Total 384 ug/dL (250-450); Thyroid Stim Hormone (TSH) 1.63 uIU/mL (0.358-3.74)
== END | disposition home or self-care (01) ==
LOC: MTLAB 15:08
PROVIDERS: PCP Internal Medicine; Referring Provider Internal Medicine; Visit Provider Internal Medicine
DX: D50.9 Iron deficiency anemia, unspecified (principal); E03.9 Hypothyroidism, unspecified
CPT/HCPCS: 36415; 83540; 83550; 84443; 85025

== ENCOUNTER → 2022-03-31 | Outpatient (CLI) | payer BC, SELFPAY ==
[2022-03-31 10:25] LABS: Erythrocyte Sedimentation Rate 7 mm/hr (0-20)
[2022-03-31 11:02] LABS: ALB/GLOB Ratio 1.1 RATIO (0.9-2.4); AST(SGOT) 24 U/L (15-37); Alanine Aminotransfer ALT/SGPT 29 U/L (16-61); Albumin, Serum 3.6 g/dL (3.2-5.0); Alkaline Phosphatase 55 U/L (45-117); BUN 20 mg/dL (7-18); BUN/Creat Ratio 17.7 RATIO (10-20); Calcium,Total 9.1 mg/dL (8.5-10.1); Creatinine, Serum 1.13 mg/dL (0.70-1.30); EST Glomerular Filtration Rate 70 mL/min (>60); Est Glom Filt Rate - Afr Amer 85 mL/min (>60); Globulin 3.3 g/dL (2.2-4.2); Glucose 82 mg/dL (74-106); Protein, Total 6.9 g/dL (6.4-8.2)
[2022-03-31 11:03] LABS: Anion Gap 5 (5-15); CRP < 2.90 mg/L (0.0-3.0); Chloride 108 mmol/L (98-107); Ferritin 11 ng/mL (26-388); Potassium 4.3 mmol/L (3.5-5.1); Sodium Level 140 mmol/L (136-145)
[2022-04-05 09:43] LABS: Calprotectin, Stool 157 ug/g (0-120)
== END | disposition home or self-care (01) ==
PROVIDERS: PCP Internal Medicine; Referring Provider Nurse Practitioner Adult Health; Visit Provider Nurse Practitioner Adult Health
DX: K50.90 Crohn's disease, unspecified, without complications (principal)
CPT/HCPCS: 36415; 80053; 82728; 83630; 83993; 85652; 86140

== ENCOUNTER → 2022-05-23 | Outpatient (CLI) | payer BC, SELFPAY ==
[2022-05-23 16:20] LABS: Absolute Lymphocyte Count 1.35 X10^3/uL (0.83-4.51); Absolute Neutrophil Count 3.6 X10^3/uL (2.0-7.7); Basophil# 0.05 X10^3/uL; Basophil% 0.9 % (0-1); Eosinophil# 0.19 X10^3/uL; Eosinophils% 3.3 % (0-5); Hemoglobin 13.8 g/dL (13.0-16.5); Lymphocyte # 1.35 X10^3/ul (0.83-4.51); Lymphocyte % 23.2 % (19-41); Mean Corp Hgb Conc 33.7 g/dL (32-36); Mean Corpuscular Hgb 30.7 pg (27.0-32.0); Mean Corpuscular Volume 91.1 fL (80-94); Mean Platelet Vol. 10.8 fl (6.2-12.0); Monocyte# 0.55 X10^3/uL; Monocyte% 9.4 % (0-10); NRBC Flagged by Analyzer 0 % (0-5); Neutrophil # 3.64 X10^3/uL (2.7-7.7); Neutrophil % 62.3 % (47-70); Platelet Count 241 K/mm3 (150-450); RBC Distribution Width CV 11.7 % (11.6-14.6); RBC Distribution Width SD 39.2 fl (35.1-43.9); White Blood Count 5.8 K/mm3 (4.4-11.0)
[2022-05-23 16:49] LABS: ALB/GLOB Ratio 1.1 RATIO (0.9-2.4); AST(SGOT) 19 U/L (15-37); Alanine Aminotransfer ALT/SGPT 28 U/L (16-61); Albumin, Serum 3.8 g/dL (3.2-5.0); Alkaline Phosphatase 52 U/L (45-117); Anion Gap 6 (5-15); BUN 18 mg/dL (7-18); BUN/Creat Ratio 16.4 RATIO (10-20); Calcium,Total 9.4 mg/dL (8.5-10.1); Chloride 105 mmol/L (98-107); EST Glomerular Filtration Rate 72 mL/min (>60); Est Glom Filt Rate - Afr Amer 87 mL/min (>60); Ferritin 12 ng/mL (26-388); Globulin 3.5 g/dL (2.2-4.2); Glucose 89 mg/dL (74-106); Iron 92 ug/dL (65-175); Iron Binding Capacity,Total 405 ug/dL (250-450); PERCENT IRON SATURATION 22.7 % (15.0-55.0); Potassium 3.9 mmol/L (3.5-5.1); Protein, Total 7.3 g/dL (6.4-8.2); Sodium Level 140 mmol/L (136-145)
[2022-05-23 17:04] LABS: Hepatitis B Surface Antibody Non-Reactive; Rubella IgG Reactive (Nonreactive)
[2022-05-26 07:06] LABS: HEPATITIS B SURFACE AG Negative (Negative); Hep C Antibodies <0.1 s/co ratio (0.0-0.9); Hepatitis A IgM Antibody Negative (Negative); Hepatitis B Core AB IgM Negative (Negative); QNTFERON TB Mitogen Value > 10.00 IU/mL (.); QNTFERON TB Nil Value 0.01 IU/mL (.); QNTFERON TB1+ Ag Value 0.02 IU/mL (.); QNTFERON TB2+ Ag Value 0.02 IU/mL (.)
[2022-05-26 19:05] LABS: Mumps Antibody,IgG 19.5 AU/mL (Immune >10.9); QNTIFERON TB Positive Criteria Negative (Negative); Rubeola IgG Ab 33.7 AU/mL (Immune >16.4); V-Zoster IgG (Immunity) 2705 index (Immune >165)
== END | disposition home or self-care (01) ==
LOC: LAB 13:56
PROVIDERS: PCP Internal Medicine; Referring Provider Nurse Practitioner Adult Health; Visit Provider Nurse Practitioner Adult Health
DX: Z01.84 Encounter for antibody response examination (principal); K50.90 Crohn's disease, unspecified, without complications; D64.9 Anemia, unspecified
CPT/HCPCS: 36415; 80053; 80074; 82728; 83540; 83550; 85025; 86480; 86706; 86735; 86762; 86765; 86787

== ENCOUNTER → 2022-08-06 | Outpatient (CLI) | payer BC, SELFPAY ==
[2022-08-06 15:44] LABS: PSA,Total- Diagnostic 1.52 ng/mL (0.0-4.0)
== END | disposition home or self-care (01) ==
LOC: LAB 13:58
PROVIDERS: PCP Internal Medicine; Referring Provider Urology; Visit Provider Urology
DX: R97.20 Elevated prostate specific antigen [PSA] (principal)
CPT/HCPCS: 36415; 84153

== ENCOUNTER → 2022-11-13 | Outpatient (CLI) | payer BC, SELFPAY ==
[2022-11-13 15:42] LABS: Erythrocyte Sedimentation Rate 4 mm/hr (0-20)
[2022-11-13 16:28] LABS: CRP < 2.90 mg/L (0.0-3.0)
== END | disposition home or self-care (01) ==
LOC: LAB 14:37
PROVIDERS: PCP Internal Medicine; Visit Provider Internal Medicine Gastroenterology
DX: K50.90 Crohn's disease, unspecified, without complications (principal)
CPT/HCPCS: 36415; 83993; 85652; 86140

== ENCOUNTER → 2022-11-17 | Outpatient (CLI) | payer BC, SELFPAY ==
[2022-11-27 00:07] LABS: Calprotectin, Stool 164 ug/g (0-120)
== END | disposition home or self-care (01) ==
LOC: LAB 16:38
PROVIDERS: PCP Internal Medicine; Referring Provider Internal Medicine Gastroenterology; Visit Provider Internal Medicine Gastroenterology
DX: K50.90 Crohn's disease, unspecified, without complications (principal)
CPT/HCPCS: 83993

== ENCOUNTER → 2023-04-07 | Outpatient (CLI) | payer BC, SELFPAY ==
[2023-04-07 15:58] LABS: Absolute Lymphocyte Count 1.76 X10^3/uL (0.83-4.51); Absolute Neutrophil Count 2.9 X10^3/uL (2.0-7.7); Basophil# 0.04 X10^3/uL; Basophil% 0.7 % (0-1); Eosinophil# 0.39 X10^3/uL; Eosinophils% 6.9 % (0-5); Hematocrit 38.9 % (40-54); Hemoglobin 13.1 g/dL (13.0-16.5); Lymphocyte # 1.76 X10^3/ul (0.83-4.51); Lymphocyte % 30.9 % (19-41); Mean Corp Hgb Conc 33.7 g/dL (32-36); Mean Platelet Vol. 10.9 fl (6.2-12.0); Monocyte# 0.62 X10^3/uL; Monocyte% 10.9 % (0-10); NRBC Flagged by Analyzer 0 % (0-5); Neutrophil # 2.87 X10^3/uL (2.7-7.7); Neutrophil % 50.4 % (47-70); Platelet Count 203 K/mm3 (150-450); RBC Distribution Width CV 11.9 % (11.6-14.6); RBC Distribution Width SD 40.2 fl (35.1-43.9); Red Blood Count 4.23 M/mm3 (4.6-6.2); White Blood Count 5.7 K/mm3 (4.4-11.0)
[2023-04-07 16:14] LABS: Erythrocyte Sedimentation Rate 1 mm/hr (0-20)
[2023-04-07 16:41] LABS: ALB/GLOB Ratio 1.1 RATIO (0.9-2.4); AST(SGOT) 25 U/L (15-37); Alanine Aminotransfer ALT/SGPT 34 U/L (16-61); Albumin, Serum 3.5 g/dL (3.2-5.0); Alkaline Phosphatase 53 U/L (45-117); Anion Gap 2 (5-15); BUN 20 mg/dL (7-18); BUN/Creat Ratio 14.7 RATIO (10-20); CRP < 2.90 mg/L (0.0-3.0); Calcium,Total 8.5 mg/dL (8.5-10.1); Chloride 108 mmol/L (98-107); Creatinine, Serum 1.36 mg/dL (0.70-1.30); EST Glomerular Filtration Rate 56 mL/min (>60); Est Glom Filt Rate - Afr Amer 68 mL/min (>60); Globulin 3.1 g/dL (2.2-4.2); Glucose 92 mg/dL (74-106); Potassium 4.2 mmol/L (3.5-5.1); Protein, Total 6.6 g/dL (6.4-8.2); Sodium Level 141 mmol/L (136-145)
[2023-04-09 15:08] LABS: Anti-Smooth Muscle ABS 7 Units (0-19)
[2023-04-13 14:08] LABS: Calprotectin, Stool 269 ug/g (0-120)
== END | disposition home or self-care (01) ==
PROVIDERS: PCP Internal Medicine; Referring Provider Internal Medicine Gastroenterology; Visit Provider Internal Medicine Gastroenterology
DX: K50.90 Crohn's disease, unspecified, without complications (principal)
CPT/HCPCS: 36415; 80053; 83516; 83630; 83993; 85025; 85652; 86140

== ENCOUNTER 2023-07-17 08:30 | Outpatient (RCR) | payer BC, SELFPAY ==
--- NOTE | 2023-06-19 11:06 | HP.PTEVAL_ITS ---
Patient's Visit Information Visit Information Visit Information: CHINYERE RIVERA is a 63 year old M referred to Physical Therapy by HEMANT Kumar with a diagnosis of R ankle Fx. Date of Evaluation: 06/19/23 Physical Therapist: Juan Shah, PT, ATC Visit Plan Frequency: 2-3x /Week Duration: 4-6 Weeks Plan: R ankle mobs/PROM, stretching and strengthening, balance and proprio, nustep, and HEP Subjective Subjective: DOI: 04/30/23. Pt reports he fell off of the roof and fractured his R ankle. Pt reports he was placed into a cam boot and has been walking in that ever since. Pt reports he sees the doctor today and hopes he can get rid of the boot then. No PMHx of R ankle Fracture prior to this injury. Pt is retired at this time. Pt denies tingling or numbness in R LE. Pt reports no pain when he is walking, but occasional pain with stair negotiation. Pt reports he and his like to go on walks, which he would like to be able to do again. Pt reports he really looks forward to being able to drive again soon. Pt reports occasional sleep difficulty secondary to pain. 0/10 pain at rest, 1/10 pain at worst Pain R ankle: Pain Intensity (Out of 10): 0 Pain Intensity Range: 1 Objective Objective: Neuro: B LE sensation is WNL to light touch Girth of ankle: L ankle 60 cm, R ankle 62 cm ROM: L ankle DF= 10, PF= 55; R ankle DF= 6, PF= 40 MMT: L ankle DF= 44, PF= 75 #F; R ankle DF= 42, PF= 51 #F Gait: Pt ambulates with early pronation during stance phase. Mild limp of R LE. Balance/Special Test Scores Lower Extremity Functional Score: 51 Goals Goal 1:: Decrease R ankle pain x 50% to aid with sleep Goal Time Frame: 4-6 Weeks Goal 2:: Increase R ankle DF ROM x 5-10 degrees to aid with restoring a more normalized gait pattern Goal Time Frame: 4-6 Weeks Goal 3:: Increase R ankle strength x 5-10 #F to aid with stair negotiation Goal Time Frame: 4-6 Weeks Goal 4:: I with HEP Goal Time Frame: 4-6 Weeks Rehabilitation Potential Physical Therapy Diagnosis: Pt has R ankle pain, weakness, and limited ROM secondary to R ankle Fx Rehabilitation Potential: Good Anticipated Interventions Patient/Client Instruction: Educate patient on: Condition and Plan of Care For the Purpose of:: To improve self management Therapeutic Exercise to Include: Strength training, Endurance training, Balance training, Flexibilty training, Gait and locomotor training, Passive ROM and Active ROM For the Purpose of:: To decrease pain, To increase ROM and To improve muscle performance and motor function Cryotherapy (ice pack, ice massage): Yes For the Purpose of:: To decrease pain Text: Thank you for the opportunity to evaluate your patient. For Medicare and Medicare HMO plans, please review the plan of care and approve it. It will need to be FAXED BACK to us at [phone] for Medicare purposes. For Medicare only, by signing this I certify the plan of care. Please let me know if there are questions or concerns regarding this plan of care. Physician Signature: Date:
--- NOTE | 2023-07-17 09:09 | HP.PTDCSUM_ITS ---
Discharge Summary D/C summary: It has been my pleasure to treat CHINYERE RIVERA referred by HEMANT Kumar, with the diagnosis of R ankle Fx for a total of 7 visit(s). Discharge Date: Please see the following information for a summary of their discharge status. Subjective Subjective: Pt reports he only has mild pain today Pain R ankle: Pain Intensity (Out of 10): 1 Overall Improvement % Improvement: 95 Objective Objective/Function: R ankle pain ranges from 1-3/10 R ankle DF ROM: 15 degrees R ankle MMT: DF= 58, PF= 82, Inv= 51, Ever= 33 #F Goals Goal 1:: Decrease R ankle pain x 50% to aid with sleep Goal Progress: Goal Met Goal 2:: Increase R ankle DF ROM x 5-10 degrees to aid with restoring a more normalized gait pattern Goal Progress: Goal Met Goal 3:: Increase R ankle strength x 5-10 #F to aid with stair negotiation Goal Progress: Goal Met Goal 4:: I with HEP Goal Progress: Goal Met Plan Plan: Discharge to [facility] D/C Information d/c sentence: If there are questions or concerns regarding this patient's physical therapy, please feel free to call me at [phone]. Thank you for the referral of this patient. Sincerely, Juan Shah, PT, ATC Balance/Gait/Functional tests Balance/Special Test Scores Lower Extremity Functional Score: 73 Improvement % Improvement: 95
== END 2023-07-17 19:00 | disposition home or self-care (01) ==
LOC: PT 08:30
PROVIDERS: PCP Internal Medicine; Referring Provider Physician Assistant; Visit Provider Physician Assistant
DX: S82.891D Other fracture of right lower leg, subsequent encounter for closed fracture with routine healing (principal)
CPT/HCPCS: 97110; 97140; 97161

== ENCOUNTER → 2023-07-17 | Outpatient (CLI) | payer BC, SELFPAY ==
[2023-07-17 11:31] LABS: Absolute Lymphocyte Count 2.06 X10^3/uL (0.83-4.51); Absolute Neutrophil Count 3.4 X10^3/uL (2.0-7.7); Basophil# 0.08 X10^3/uL; Basophil% 1.2 % (0-1); Eosinophil# 0.43 X10^3/uL; Eosinophils% 6.3 % (0-5); Hemoglobin 13.2 g/dL (13.0-16.5); Lymphocyte # 2.06 X10^3/ul (0.83-4.51); Lymphocyte % 30.2 % (19-41); Mean Corpuscular Hgb 30.1 pg (27.0-32.0); Mean Corpuscular Volume 91.1 fL (80-94); Mean Platelet Vol. 10.1 fl (6.2-12.0); Monocyte% 11.7 % (0-10); NRBC Flagged by Analyzer 0 % (0-5); Neutrophil # 3.42 X10^3/uL (2.7-7.7); Neutrophil % 50.3 % (47-70); Platelet Count 211 K/mm3 (150-450); RBC Distribution Width CV 11.9 % (11.6-14.6); RBC Distribution Width SD 39.8 fl (35.1-43.9); Red Blood Count 4.39 M/mm3 (4.6-6.2); White Blood Count 6.8 K/mm3 (4.4-11.0)
[2023-07-17 11:39] LABS: Erythrocyte Sedimentation Rate 4 mm/hr (0-20)
[2023-07-17 12:16] LABS: ALB/GLOB Ratio 1.1 RATIO (0.9-2.4); AST(SGOT) 21 U/L (15-37); Alanine Aminotransfer ALT/SGPT 28 U/L (16-61); Albumin, Serum 3.6 g/dL (3.2-5.0); Alkaline Phosphatase 55 U/L (45-117); Anion Gap 2 (5-15); BUN 20 mg/dL (7-18); BUN/Creat Ratio 17.9 RATIO (10-20); CRP < 2.90 mg/L (0.0-3.0); Chloride 108 mmol/L (98-107); Creatinine, Serum 1.12 mg/dL (0.70-1.30); EST Glomerular Filtration Rate 70 mL/min (>60); Est Glom Filt Rate - Afr Amer 85 mL/min (>60); Globulin 3.3 g/dL (2.2-4.2); Glucose 53 mg/dL (74-106); LDH 212 U/L (87-241); Potassium 4.4 mmol/L (3.5-5.1); Protein, Total 6.9 g/dL (6.4-8.2); Sodium Level 141 mmol/L (136-145)
[2023-07-21 00:06] LABS: Calprotectin, Stool 430 ug/g (0-120)
== END | disposition home or self-care (01) ==
PROVIDERS: PCP Internal Medicine; Referring Provider Internal Medicine Gastroenterology; Visit Provider Internal Medicine Gastroenterology
DX: K50.80 Crohn's disease of both small and large intestine without complications (principal)
CPT/HCPCS: 36415; 80053; 83615; 83630; 83993; 85025; 85652; 86140; 86480

== ENCOUNTER → 2023-08-05 | Outpatient (CLI) | payer BC, SELFPAY ==
[2023-08-07 17:07] LABS: QNTFERON TB Mitogen Value > 10.00 IU/mL (.); QNTFERON TB Nil Value 0.01 IU/mL (.); QNTFERON TB1+ Ag Value 0.03 IU/mL (.); QNTFERON TB2+ Ag Value 0.01 IU/mL (.); QNTIFERON TB Positive Criteria Negative (Negative)
== END | disposition home or self-care (01) ==
LOC: LAB 14:00
PROVIDERS: PCP Internal Medicine; Referring Provider Internal Medicine Gastroenterology; Visit Provider Internal Medicine Gastroenterology
DX: K50.80 Crohn's disease of both small and large intestine without complications (principal)
CPT/HCPCS: 36415; 86480

== ENCOUNTER → 2023-08-06 | Outpatient (CLI) | payer BC, SELFPAY | END | disposition home or self-care (01) | LOC: LABSPEC 12:55 | PROVIDERS: PCP Internal Medicine; Referring Provider Internal Medicine Gastroenterology; Visit Provider Internal Medicine Gastroenterology | DX: K50.80 Crohn's disease of both small and large intestine without complications (principal) | CPT/HCPCS: 87177; 87209; 87329; 87493; 87506 ==

== ENCOUNTER → 2023-08-07 | Outpatient (CLI) | payer BC, SELFPAY ==
[2023-08-07 15:45] LABS: Absolute Lymphocyte Count 1.33 X10^3/uL (0.83-4.51); Absolute Neutrophil Count 5.1 X10^3/uL (2.0-7.7); Basophil# 0.02 X10^3/uL; Basophil% 0.3 % (0-1); Eosinophils% 1.4 % (0-5); Hematocrit 38.6 % (40-54); Hemoglobin 12.7 g/dL (13.0-16.5); Lymphocyte # 1.33 X10^3/ul (0.83-4.51); Lymphocyte % 19.2 % (19-41); Mean Corp Hgb Conc 32.9 g/dL (32-36); Mean Corpuscular Hgb 30.4 pg (27.0-32.0); Mean Corpuscular Volume 92.3 fL (80-94); Mean Platelet Vol. 10.8 fl (6.2-12.0); Monocyte# 0.37 X10^3/uL; Monocyte% 5.3 % (0-10); NRBC Flagged by Analyzer 0 % (0-5); Neutrophil % 73.5 % (47-70); POSITIVE MORPHOLOGY YES; Platelet Count 216 K/mm3 (150-450); RBC Distribution Width CV 12.2 % (11.6-14.6); RBC Distribution Width SD 41.2 fl (35.1-43.9); Red Blood Count 4.18 M/mm3 (4.6-6.2); White Blood Count 6.9 K/mm3 (4.4-11.0)
[2023-08-07 15:50] LABS: Differential Indicated SCAN CRITERIA MET
[2023-08-07 16:20] LABS: Differential Comment SCANNED
[2023-08-07 16:34] LABS: ALB/GLOB Ratio 1.1 RATIO (0.9-2.4); AST(SGOT) 17 U/L (15-37); Alanine Aminotransfer ALT/SGPT 26 U/L (16-61); Albumin, Serum 3.5 g/dL (3.2-5.0); Alkaline Phosphatase 52 U/L (45-117); Anion Gap 2 (5-15); BUN 21 mg/dL (7-18); BUN/Creat Ratio 18.8 RATIO (10-20); Chloride 108 mmol/L (98-107); Creatinine, Serum 1.12 mg/dL (0.70-1.30); EST Glomerular Filtration Rate 70 mL/min (>60); Est Glom Filt Rate - Afr Amer 85 mL/min (>60); Globulin 3.1 g/dL (2.2-4.2); Glucose 86 mg/dL (74-106); Potassium 4.1 mmol/L (3.5-5.1); Protein, Total 6.6 g/dL (6.4-8.2); Sodium Level 139 mmol/L (136-145)
== END | disposition home or self-care (01) ==
LOC: MTLAB 11:17
PROVIDERS: PCP Internal Medicine; Referring Provider Internal Medicine Gastroenterology; Visit Provider Internal Medicine Gastroenterology
DX: A49.8 Other bacterial infections of unspecified site (principal)
CPT/HCPCS: 36415; 80053; 85025

== ENCOUNTER 2023-09-18 08:44 | Outpatient (CLI) | payer BC, SELFPAY ==
[2023-09-18 09:25] VITALS: BP 118/82; PULSE 61; RESP 16; TEMP 36.2; O2SAT 97; BMI 27.8
[2023-09-18] MEDS: 0.9% NaCl Peripheral Flush Adult/Peds IV (09:37)
[2023-09-18] MEDS: 0.9% NaCl IVPB Med Flush (250 mL) 15 ML IV (09:38)
[2023-09-18] MEDS: Ustekinumab 520 MG in 0.9% Normal Saline (250mL Bag) 146 ML 250 MG IV (09:55)
[2023-09-18 11:26] VITALS: BP 125/94; RESP 16; TEMP 36.2; O2SAT 96
== END 2023-09-18 08:45 | disposition home or self-care (01) ==
PROVIDERS: PCP Internal Medicine; Referring Provider Internal Medicine Gastroenterology; Visit Provider Internal Medicine Gastroenterology
DX: K50.80 Crohn's disease of both small and large intestine without complications (principal)
CPT/HCPCS: 96365; 96366; J7050; A4216; J3358

== ENCOUNTER → 2024-02-15 | Outpatient (CLI) | payer BC, SELFPAY ==
--- NOTE | 2024-02-15 12:50 | RAD_ITS ---
STUDY: X-RAY - LEFT HAND REASON FOR EXAM: Male, 63 years old. CRUSH INJURY TECHNIQUE: 3 view(s) of the hand. COMPARISON: [X-ray dated September 29, 2017 FINDINGS: An acute oblique fracture is present through the articular surface of the head and into the neck of the second metacarpal bone with mild displacement and overlying soft tissue swelling. A second two-part fracture with oblique and transverse components are present in the mid shaft and base of the second proximal phalanx without displacement. No additional acute fractures are present. Normal radiocarpal articulation. Normal distal radioulnar joint. Normal visualized carpal bones. Normal carpal articulations Normal carpometacarpal articulation of the thumb. Normal second through fifth carpometacarpal joints. Normal remaining metacarpi. Normal metacarpophalangeal joint of the thumb. Normal interphalangeal joint of the thumb. Normal proximal and distal phalanges of the thumb. Normal metacarpophalangeal joints of the second through fifth fingers. Normal proximal and distal interphalangeal joints of the second through fifth fingers. Normal phalanges of the second through fifth fingers. RAD/Hand Min 3 Views IMPRESSION: 1. An acute oblique fracture is present through the articular surface of the head and into the neck of the second metacarpal bone with mild displacement and overlying soft tissue swelling. A second two-part fracture with oblique and transverse components are present in the mid shaft and base of the second proximal phalanx without displacement. Electronically Signed: Lars Lewis MD at 14:04 EDT ,
== END | disposition home or self-care (01) ==
LOC: RAD 12:23
PROVIDERS: PCP Internal Medicine; Referring Provider Family Medicine; Visit Provider Family Medicine
DX: T14.8XXA Other injury of unspecified body region, initial encounter (principal)
CPT/HCPCS: 73130

== ENCOUNTER 2024-02-16 14:52 | Emergency (ER) | payer BC, SELFPAY ==
[2024-02-16 14:54] VITALS: BP 145/88; PULSE 58; RESP 18; TEMP 36.2; O2SAT 97; BMI 27.9
--- NOTE | 2024-02-16 15:05 | EDS_ITS ---
HPI History of Present Illness Chief Complaint: Upper Extremity Injury [facility] Medical History Abnormal stress test Alcohol use Anxiety and depression Back pain Cardiology follow-up encounter Chest pain Depression Eczema Ganglion cyst Heartburn History of echocardiogram History of stress test Hyperlipidemia Hypothyroidism Iron deficiency anemia Leg cramps Low iron Non-smoker Prostatitis Restless legs Tinnitus Wears hearing aid Home Medications ?Medication ?Instructions ?Recorded ?Last Taken ?Type coenzyme Q10 100 mg capsule (Co 100 mg PO DAILY 04/25/19 Unknown History Q-10) multivitamin 1 tab PO DAILY 04/25/19 Unknown History bupropion HCl 300 mg 24 hr tablet, 300 mg PO QAM 08/28/21 Unknown History extended release escitalopram oxalate 10 mg tablet 10 mg PO DAILY 08/28/21 Unknown History Saccharomyces boulardii 250 mg 250 mg PO BID 02/11/23 Unknown History capsule (Daily Probiotic (S. boulardii)) ascorbic acid (vitamin C) 1,000 mg 1 g PO Q6H 02/11/23 Unknown History capsule cholecalciferol (vitamin D3) 25 25 mcg PO DAILY 02/11/23 Unknown History mcg (1,000 unit) capsule turmeric 100 mg-tyler 150 1 cap PO DAILY 02/11/23 Unknown History mg-olive 50 mg-oreg 150 mg-capryl capsule levothyroxine 125 mcg tablet 125 mcg PO DAILY 05/05/23 Unknown History (Synthroid) levothyroxine 50 mcg tablet 50 mcg PO DAILY 05/05/23 Unknown History (Synthroid) ustekinumab 130 mg/26 mL 520 mg (104 mL) IV ONCE 08/27/23 Unknown Rx intravenous solution (Stelara) ustekinumab 90 mg/mL subcutaneous 90 mg subcut Q8W #1 mL 08/27/23 Unknown Rx syringe (Stelara) budesonide 3 mg 6 mg (2 x 3 mg) PO DAILY #180 caps 02/02/24 Unknown Rx capsule,delayed,extended release Allergy/AdvReac Type Severity Reaction Status Date / Time No Known Allergies Allergy Verified 02/16/24 14:54 Family History Father Hypertension Diabetes Heart disease heart failure Mother , age 29 Bleeding disorder Blood clot after horseback riding accident Grandfather Cancer prostate Grandmother [place]'s disease Surgical History History of hemorrhoids History of nasal septoplasty History of tonsillectomy and adenoidectomy History of vasectomy Hx of colonoscopy Social History Smoking Status: Never smoker alcohol intake: current alcohol intake frequency: a few times a week substance use type: does not use caffeine: Yes Type: carbonated beverages Number of servings: 1 and coffee Number of servings: 2 EXAM Physical Exam Const Vital Signs: 02/16/24 14:54 Temperature 97.2 F L Temperature Source Temporal Pulse Rate 58 L Respiratory Rate 18 Blood Pressure 145/88 H Blood Pressure Mean 107 Pulse Ox 97 Oxygen Delivery Method Room Air MDM MDM MDM Narrative Medical decision making narrative: HISTORY OF PRESENT ILLNESS: 63-year-old male presents with broken left index finger. REVIEW OF SYSTEMS: Pertinent positives: Left index finger pain Pertinent negatives: Numbness, loss of sensation PHYSICAL EXAM: Nursing triage notes reviewed, Vital signs reviewed Constitutional: please see mdm Extremities: Left upper extremity is neurovascularly intact, compartments soft. TTP over second metacarpal phalangeal joint. No obvious open fracture or joint deformity. Neuro: Intact 5/5 strength with ok sign (median), intact finger abduction (ulnar) intact wrist extension (radial n). Intact sensation in the radial, ulnar, and median nerve distributions. Skin: No rash or lesions noted MEDICAL DECISION MAKING: Chief Complaint: Finger pain External records reviewed: Imaging reviewed: X-ray of the hand from 02/15/2024 shows acute oblique fracture The articular surface of the head and into the neck of the second metacarpal bone with mild displacement overlying soft tissue swelling Factors affecting care: none Social determinants of health: none History obtained from others: none Consults: none [facility] Narrative: Patient was hemodynamically stable, afebrile and nontoxic-appearing. Exam of the neurovascular intact left upper extremity. X-ray of the left hand was read reviewed personally myself and shows a distal second metacarpal head fracture with some medial Volar displacement. I also see a fracture of the proximal second phalanx. Volar splint placed. Close follow-up with hand surgery was arranged person by myself for 02/19/2024. Strict return precautions were discussed. I offered narcotic pain medicine however patient refused The patient and/or family, caregivers express understanding. The patient and/or family, caregivers agrees with the plan. Shared decision making: I will have a discussion with the patient and or visitors regarding risk/benefits of further testing or admission. They will be made aware of of the risk/benefits inherent in this decision they will be given the opportunity to voice understanding. Total critical care time today provided was at least 0 minutes. This excludes separately billable procedures. Critical care time (if documented) is secondary to the patient having high probability of clinically significant/life threatening deterioration in the patient's condition which required my urgent intervention. Impression: 1. Acute Second metacarpal fracture 2. Acute finger fracture Dispo: Discharge home This note was generated with DCITS dictation software. It may contain incorrect words, spelling, and punctuation that were not noted in review of the chart prior to signing. Procedures Upper Extremity Splints Upper Extremity Splint: Orthoglass Splint Fabrication: Pre-fabricated Location: Left Discharge Plan Triage Chief Complaint: Upper Extremity Injury ED Provider: Trenton Thurston Dx/Rx/DC Orders Instructions: ED Fracture, Finger, Closed, ED Closed Hand Fracture (Adult) Prescriptions: No Action coenzyme Q10 [Co Q-10] 100 mg capsule 100 mg PO DAILY multivitamin Tablet 1 tab PO DAILY bupropion HCl 300 mg tablet extended release 24 hr 300 mg PO QAM escitalopram oxalate 10 mg tablet 10 mg PO DAILY [id number]-fjcsc-oreg-capry 100 mg-150 mg- 50 mg-150 mg capsule 1 cap PO DAILY ascorbic acid (vitamin C) 1,000 mg capsule 1 g PO Q6H Saccharomyces boulardii [Daily Probiotic (S. boulardii)] 250 mg capsule 250 mg PO BID cholecalciferol (vitamin D3) 25 mcg (1,000 unit) capsule 25 mcg PO DAILY levothyroxine [Synthroid] 125 mcg tablet 125 mcg PO DAILY levothyroxine [Synthroid] 50 mcg tablet 50 mcg PO DAILY Stelara 130 mg/26 mL solution 520 mg IV ONCE Rx Instructions: Infuse via IV 520mg for weight 95kg as a one time dose No auth required per insurance Stelara 90 mg/mL syringe 90 mg subcut Q8W Qty: 1 5RF Rx Instructions: inject once every eight weeks starting 8 weeks after infusion Approves [id number] JAZMINE [id number] [place] budesonide 3 mg capsule,delayed,extend.release 6 mg PO DAILY Qty: 180 1RF Primary Care Provider: Lucho Gastelum Referrals: Lucho Gastelum MD [Primary Care Provider] - Osmany Isbell MD [Med Staff - Active Staff] - Activity Restrictions/Additional Instructions: Thank you for trusting us with your care today! Please take Tylenol (2 pills, 650 mg) every 6 hours as needed for pain and fever control. Please return to the emergency department if your symptoms change or worsen. Specifically develop loss of sensation, black discoloration, numbness, decreased movement. The first epidural of the symptoms is to remove Please follow with Dr. Isbell for further outpatient evaluation and management. Your appointment is already scheduled on 02/19/2024 at 11:15 AM. Print Language: [place] Disposition Disposition: Home, Self Care Discharge Date/Time: 02/16/24 16:05
== END 2024-02-16 16:05 | disposition home or self-care (01) ==
LOC: ED 16:02
PROVIDERS: Emergency Provider Emergency Medicine; PCP Internal Medicine; Visit Provider Emergency Medicine
DX: S62.301A Unspecified fracture of second metacarpal bone, left hand, initial encounter for closed fracture (principal); X58.XXXA Exposure to other specified factors, initial encounter
CPT/HCPCS: 99282

== ENCOUNTER → 2024-02-19 | Outpatient (CLI) | payer BC, SELFPAY ==
--- NOTE | 2024-02-19 12:15 | RAD_ITS ---
INDICATION: Left hand trauma EXAMINATION/TECHNIQUE: X-RAY - LEFT XR Hand Min 3 Views 3 VIEWS COMPARISON: February 15, 2024 FINDINGS: SOFT TISSUES: No soft tissue swelling or gas. No radiopaque foreign body. BONES/JOINTS: Stable fracture at the second metacarpal head . . No sclerotic or destructive changes observed. RAD/Hand Min 3 Views IMPRESSION: Stable fracture at the second metacarpal head. Electronically Signed: Solis Rivera DO at 17:35 EDT ,
== END | disposition home or self-care (01) ==
LOC: RAD 11:58
PROVIDERS: PCP Internal Medicine; Referring Provider Surgery Plastic and Reconstructive Surgery; Visit Provider Surgery Plastic and Reconstructive Surgery
DX: S62.92XA Unspecified fracture of left hand, initial encounter for closed fracture (principal)
CPT/HCPCS: 73130

== ENCOUNTER → 2024-02-29 | Outpatient (CLI) | payer BC, SELFPAY ==
--- NOTE | 2024-02-29 13:35 | RAD_ITS ---
INDICATION: fracture left hand EXAMINATION/TECHNIQUE: X-RAY - LEFT XR Hand Min 3 Views 3 VIEWS COMPARISON: February 18, 2034 FINDINGS: SOFT TISSUES: No soft tissue swelling or gas. No radiopaque foreign body. BONES/JOINTS: There is a fracture at the second metacarpal head. Preservation of the joint space.. No sclerotic or destructive changes observed. RAD/Hand Min 3 Views IMPRESSION: Second metacarpal fracture, similar to the previous study. Electronically Signed: Solis Rivera DO at 21:43 EDT ,
== END | disposition home or self-care (01) ==
LOC: RAD 13:34
PROVIDERS: PCP Internal Medicine; Referring Provider Surgery Plastic and Reconstructive Surgery; Visit Provider Surgery Plastic and Reconstructive Surgery
DX: S69.92XA Unspecified injury of left wrist, hand and finger(s), initial encounter (principal)
CPT/HCPCS: 73130

== ENCOUNTER → 2024-03-04 | Outpatient (CLI) | payer SELFPAY ==
--- NOTE | 2024-03-04 10:55 | RAD_ITS ---
STUDY: X-RAY - LEFT HAND REASON FOR EXAM: Male, 63 years old. Left hand trauma TECHNIQUE: 3 view(s) of the hand. COMPARISON: Comparison is made with prior study dated February 29, 2024. FINDINGS: Normal radiocarpal articulation. Normal distal radioulnar joint. Normal visualized carpal bones. Normal carpal articulations Normal carpometacarpal articulation of the thumb. Normal second through fifth carpometacarpal joints. Stable nondisplaced fracture of the head of the second metacarpal. The fracture is healing. Normal metacarpophalangeal joint of the thumb. Normal interphalangeal joint of the thumb. Normal proximal and distal phalanges of the thumb. Normal metacarpophalangeal joints of the second through fifth fingers. Normal proximal and distal interphalangeal joints of the second through fifth fingers. Normal phalanges of the second through fifth fingers. Residual soft tissue swelling. RAD/Hand Min 3 Views IMPRESSION: Stable appearance of the fracture involving the head of the second metacarpal with overlying soft tissue swelling. The fracture is healing. Electronically Signed: Gabriele Lino MD at 9:30 EDT ,
== END | disposition home or self-care (01) ==
PROVIDERS: PCP Internal Medicine; Visit Provider Surgery Plastic and Reconstructive Surgery
DX: S62.391A Other fracture of second metacarpal bone, left hand, initial encounter for closed fracture (principal)
CPT/HCPCS: 73130

== ENCOUNTER → 2024-03-16 | Outpatient (CLI) | payer BC, SELFPAY ==
[2024-03-16 17:49] LABS: CRP < 2.90 mg/L (0.0-3.0)
[2024-03-16 18:00] LABS: Erythrocyte Sedimentation Rate 5 mm/hr (0-20)
== END | disposition home or self-care (01) ==
PROVIDERS: PCP Internal Medicine; Referring Provider Internal Medicine Gastroenterology; Visit Provider Internal Medicine Gastroenterology
DX: K50.80 Crohn's disease of both small and large intestine without complications (principal)
CPT/HCPCS: 36415; 85652; 86140

== ENCOUNTER → 2024-03-22 | Outpatient (CLI) | payer BC, SELFPAY ==
[2024-03-22 10:13] LABS: Absolute Lymphocyte Count 1.43 X10^3/uL (0.83-4.51); Absolute Neutrophil Count 4.7 X10^3/uL (2.0-7.7); Basophil# 0.05 X10^3/uL; Basophil% 0.7 % (0-1); Eosinophil# 0.24 X10^3/uL; Eosinophils% 3.4 % (0-5); Hematocrit 41.6 % (40-54); Hemoglobin 13.7 g/dL (13.0-16.5); Lymphocyte # 1.43 X10^3/ul (0.83-4.51); Lymphocyte % 20.2 % (19-41); Mean Corp Hgb Conc 32.9 g/dL (32-36); Mean Corpuscular Hgb 30.2 pg (27.0-32.0); Mean Corpuscular Volume 91.6 fL (80-94); Mean Platelet Vol. 10.5 fl (6.2-12.0); Monocyte# 0.66 X10^3/uL; Monocyte% 9.3 % (0-10); NRBC Flagged by Analyzer 0 % (0-5); Neutrophil # 4.68 X10^3/uL (2.7-7.7); Neutrophil % 66.1 % (47-70); Platelet Count 216 K/mm3 (150-450); RBC Distribution Width CV 11.9 % (11.6-14.6); RBC Distribution Width SD 39.8 fl (35.1-43.9); Red Blood Count 4.54 M/mm3 (4.6-6.2); White Blood Count 7.1 K/mm3 (4.4-11.0)
[2024-03-22 10:55] LABS: ALB/GLOB Ratio 1.1 RATIO (0.9-2.4); AST(SGOT) 28 U/L (15-37); Alanine Aminotransfer ALT/SGPT 30 U/L (16-61); Albumin, Serum 3.6 g/dL (3.2-5.0); Alkaline Phosphatase 53 U/L (45-117); Anion Gap 3 (5-15); BUN 20 mg/dL (7-18); BUN/Creat Ratio 17.5 RATIO (10-20); Calcium,Total 9.4 mg/dL (8.5-10.1); Chloride 108 mmol/L (98-107); Cholesterol 200 mg/dL (200); Creatinine, Serum 1.14 mg/dL (0.70-1.30); EST Glomerular Filtration Rate 69 mL/min (>60); Est Glom Filt Rate - Afr Amer 83 mL/min (>60); Globulin 3.2 g/dL (2.2-4.2); Glucose 72 mg/dL (74-106); High Density Lipoprotein 68 mg/dL; Iron 115 ug/dL (65-175); Iron Binding Capacity,Total 317 ug/dL (250-450); PERCENT IRON SATURATION 36.3 % (15.0-55.0); PSA,Total- Diagnostic 1.51 ng/mL (0.0-4.0); Potassium 4.2 mmol/L (3.5-5.1); Protein, Total 6.8 g/dL (6.4-8.2); Sodium Level 141 mmol/L (136-145); Triglycerides 84 mg/dL; Very Low Density Lipoprotein 17 mg/dL (5-40)
[2024-03-31 15:31] LABS: LDL, Direct 120295 136 mg/dL (0-99)
== END | disposition home or self-care (01) ==
LOC: MTLAB 08:56
PROVIDERS: PCP Internal Medicine; Referring Provider Internal Medicine; Visit Provider Internal Medicine
DX: E03.9 Hypothyroidism, unspecified (principal); D50.9 Iron deficiency anemia, unspecified; E78.5 Hyperlipidemia, unspecified; E53.8 Deficiency of other specified B group vitamins; R97.20 Elevated prostate specific antigen [PSA]
CPT/HCPCS: 36415; 80053; 80061; 82607; 83540; 83550; 83721; 84153; 84443; 85025

== ENCOUNTER 2024-04-22 09:00 | Outpatient (RCR) | payer BC, SELFPAY ==
--- NOTE | 2024-03-22 12:56 | HP.OTEVAL_ITS ---
Patient's Visit Information Visit Information Visit Information: CHINYERE RIVERA is a 63 year old M, referred to Occupational Therapy by Dr. Osmany Isbell MD, with a diagnosis of left IF phalanx fx. Date of Evaluation: 03/22/24 Occupational Therapist: Kristan Gomez, HIMA/Piter, CHT Subjective Subjective: This 63 year old male was seen for OT eval with dx of left hand fracture involving the head of the second metacarpal. Pt DOI was on 02/15/24. Pt states he was repairing a bank barn when a board hit his hand. Pt was casted and now x-rays demo healing of fx. Pt is limited with use of left hand with ADLS and IADLs. 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 pt denies pain at fx site but does states soreness at PIPJ due to isolating pts motion while fx is healing. pt limited with ability to form a composite fist at this time. ROM MP: right IF 075 left 0/45 left MF 0/60 PIP: right IF 0/105 left 0/60 left MF 0/70 ROM Comments: pt demo with a decrease in left IF and MF MCP and PIP ROM. Strength Principal Network Engineer: right 90# left NT Strength Comments: will test left at later date Sensation Sensation Comments: denies Quick DASH-Disab of Arm,Shoulder& Hand Quick DASH Score: 40.0000 Goals Goal:ROM equal to unaffected hand: Yes Comment: MCP of IF and MF to 70* or greater PIP to 95* or greater Goal:Principal Network Engineer/Pinch strength at least 75% of unaffected hand: Yes Comment: will not test until week 8 or indicates otherwise Goal:No pain with affected hand use: Yes Goal:Full use of affected hand in daily activities including work: Yes Other Goal: orthosis use: pt will demo understanding of using orthosis with heavy work tasks to allow for fx site to heal by end of 1st session. pt will demo IND donning and doffing orthosis by end of 1st session pt will demo understanding of orthosis precautions and agree to return to clinic for adj. if any issues of discomfort by end of 1st session. Rehabilitation General Assessment: pt arrives to OT session 5 weeks and 1 days from DOI. fracture involving the head of the second metacarpal. Fx is healing but continues to demo need for increased protection and support while pt returns to his PLOF. Rehabilitation Potential: Good Anticipated Interventions Anticipated Interventions: A/AAROM/PROM, Strengthening, Modalities, Orthoses, Joint Protection/Energy Conservation, Ergonomic Education, Education re Diagnosis and Home Program Other Interventions: will not strengthen until Dr. Isbell allows Visit Plan Frequency: 1-2x /Week Duration: 2-4 Weeks General Plan: orthosis use light ROM ed. pt on healing TEXT: Thank you for the opportunity to evaluate your patient. For Medicare and Medicare HMO plans, please review the plan of care and approve it. It will need to be FAXED BACK to us at [phone] for Medicare purposes. Please let me know if there are questions or concerns regarding this plan of care. Physician Signature: Date:
--- NOTE | 2024-04-22 09:31 | HP.OTDCSUM ---
Discharge Summary D/C Summary: It has been my pleasure to treat CHINYERE RIVERA under orders from Dr. Osmany Isbell MD, for the diagnosis of left IF phalanx fx for a total of 10 visit(s). Please see the following information for a summary of their discharge status. Overall Improvement % Improvement: 80 Objective Objective/Function: left IF MCP flexion 0/75* increase from 45* flexion. left IF PIP flexion 0/87* increase from 60* flexion pt has made good gains with his ROM and states he will cont with a HEP to reach a increase in PIP ROM. left childbirth educator strength 72# left lateral pinch strength 18# left tripod pinch strength 18# pt agrees with D/C Goals Patient Goals: Regain Mobility, Regain Strength and Use Hand/Wrist/Arm Normally Again Goal:ROM equal to unaffected hand: Yes Goal Progress: Progressing Goal:Assistant Maintenance Manager/Pinch strength at least 75% of unaffected hand: Yes Goal Progress: Goal Met Goal:No pain with affected hand use: Yes Goal Progress: Goal Met Goal:Full use of affected hand in daily activities including work: Yes Goal Progress: Goal Met Other Goal: orthosis use: pt will demo understanding of using orthosis with heavy work tasks to allow for fx site to heal by end of 1st session. pt will demo IND donning and doffing orthosis by end of 1st session pt will demo understanding of orthosis precautions and agree to return to clinic for adj. if any issues of discomfort by end of 1st session. Plan Plan: pt agrees with D/c D/C Information Discharge Comments: pt was seen for 10 OT sessions. pt has made great gains in his ROM and strength- he reports IND with ADls and IADLs- some difficulty with shoveling and other tasks manual tasks. Pt agrees to cont with his HEP and is now d/c. d/c sentence: If there are questions or concerns regarding this patient's occupational therapy, please fell free to call me at [phone]. Thank you for the referral of this patient. Sincerely, Kristan Gomez, OTR/L, CHT
== END 2024-04-22 19:00 | disposition home or self-care (01) ==
LOC: OT 09:00
PROVIDERS: PCP Internal Medicine; Referring Provider Surgery Plastic and Reconstructive Surgery; Visit Provider Surgery Plastic and Reconstructive Surgery
DX: S62.90XD Unspecified fracture of unspecified hand, subsequent encounter for fracture with routine healing (principal)
CPT/HCPCS: 97110; 97140; 97165; 97530; 97760

== ENCOUNTER → 2024-10-11 | Outpatient (CLI) | payer BC, SELFPAY ==
[2024-10-11 15:53] LABS: Absolute Lymphocyte Count 1.23 X10^3/uL (0.83-4.51); Absolute Neutrophil Count 3.8 X10^3/uL (2.0-7.7); Basophil# 0.04 X10^3/uL; Basophil% 0.7 % (0-1); Eosinophil# 0.14 X10^3/uL; Eosinophils% 2.5 % (0-5); Hemoglobin 12.7 g/dL (13.0-16.5); Lymphocyte # 1.23 X10^3/ul (0.83-4.51); Lymphocyte % 21.5 % (19-41); Mean Corp Hgb Conc 33.4 g/dL (32-36); Mean Corpuscular Hgb 30.3 pg (27.0-32.0); Mean Corpuscular Volume 90.7 fL (80-94); Mean Platelet Vol. 10.6 fl (6.2-12.0); Monocyte# 0.54 X10^3/uL; Monocyte% 9.5 % (0-10); NRBC Flagged by Analyzer 0 % (0-5); Neutrophil # 3.75 X10^3/uL (2.7-7.7); Neutrophil % 65.6 % (47-70); Platelet Count 212 K/mm3 (150-450); RBC Distribution Width SD 39.6 fl (35.1-43.9); Red Blood Count 4.19 M/mm3 (4.6-6.2); White Blood Count 5.7 K/mm3 (4.4-11.0)
[2024-10-11 16:16] LABS: Prothrombin Time (Protime)PT. 12.8 SECONDS (11.7-14.9)
[2024-10-11 16:31] LABS: ALB/GLOB Ratio 1.7 RATIO (0.9-2.4); AST(SGOT) 26 U/L (<=37); Alanine Aminotransfer ALT/SGPT 18 U/L (<=46); Albumin, Serum 4.1 g/dL (3.4-4.8); Alkaline Phosphatase 58 U/L (40-129); Anion Gap 10 (5-15); BUN 26 mg/dL (4-19); BUN/Creat Ratio 23.8 RATIO (10-20); Calcium,Total 9.3 mg/dL (7.6-11.0); Carbon Dioxide 25.8 mmol/L (21.0-32.0); Chloride 106 mmol/L (98-108); Creatinine, Serum 1.07 mg/dL (0.70-1.20); EST Glomerular Filtration Rate 77 (>60); Globulin 2.4 g/dL (2.2-4.2); Glucose 94 mg/dL (70-99); Potassium 4.5 mmol/L (3.3-5.1); Protein, Total 6.6 g/dL (5.9-8.4); Sodium Level 142 mmol/L (133-145); Total Bilirubin 0.55 mg/dL (0.00-1.30)
[2024-10-11 16:38] LABS: CRP < 3.00 mg/L (0.0-3.0)
[2024-10-11 16:41] LABS: Cholesterol 197 mg/dL (<=200); High Density Lipoprotein 55 mg/dL; Low Density Lipoprotein Calc. 109 mg/dL; PSA,Total- Diagnostic 1.86 ng/mL (0.00-4.00); Thyroid Stim Hormone (TSH) 0.252 uIU/mL (0.300-4.200); Triglycerides 166 mg/dL; Very Low Density Lipoprotein 33 mg/dL (5-40); Vitamin B12 388 pg/mL (180-914); cholesterol:hdl ratio screen 3.61
[2024-10-11 17:52] LABS: Erythrocyte Sedimentation Rate 1 mm/hr (0-20)
[2024-10-11 18:18] LABS: Iron 110 ug/dL (65-175); Iron Binding Capacity,Total 282 ug/dL (250-450); Iron Binding Capacity,Unsat 172 ug/dL (228-428)
[2024-10-13 05:07] LABS: LDL, Direct 120295 128 mg/dL (0-99)
[2024-10-14 15:08] LABS: Calprotectin, Stool 22 ug/g (0-120)
== END | disposition home or self-care (01) ==
PROVIDERS: PCP Internal Medicine; Referring Provider Internal Medicine; Visit Provider Internal Medicine Gastroenterology
DX: E03.9 Hypothyroidism, unspecified (principal); D50.9 Iron deficiency anemia, unspecified; E78.5 Hyperlipidemia, unspecified; E53.8 Deficiency of other specified B group vitamins; R97.20 Elevated prostate specific antigen [PSA]
CPT/HCPCS: 36415; 80053; 80061; 82607; 83540; 83550; 83630; 83721; 83993; 84153; 84443; 85025; 85610; 85652; 86140

== ENCOUNTER → 2024-10-14 | Outpatient (CLI) | payer BC, SELFPAY | END | disposition home or self-care (01) | LOC: MTLAB 09:46 | PROVIDERS: PCP Internal Medicine; Referring Provider Internal Medicine Gastroenterology; Visit Provider Internal Medicine Gastroenterology | DX: K50.80 Crohn's disease of both small and large intestine without complications (principal) | CPT/HCPCS: 82274 ==

== ENCOUNTER → 2025-04-14 | Outpatient (CLI) | payer MEDICARE, OTHER, SELFPAY ==
--- NOTE | 2025-04-14 13:59 | RAD_ITS ---
PROCEDURE: SHOULDER MIN 2 VIEWS 04/14/2025 REASON FOR EXAM: SHOULDER PAIN TECHNIQUE: Procedure Code: RADSH Modality: DX Procedure: SHOULDER MIN 2 VIEWS Laterality: Right shoulder. COMPARISON: None FINDINGS: Bones: No fracture seen. Joints: Normal alignment of the acromioclavicular and glenohumeral joints. Soft tissues: Soft tissues are unremarkable. Other: RAD/Shoulder min 2 Views IMPRESSION: NO ACUTE FRACTURE OR DISLOCATION. Reading Location: [id number]
== END | disposition home or self-care (01) ==
LOC: MTRAD 13:59
PROVIDERS: PCP Internal Medicine; Referring Provider Orthopaedic Surgery; Visit Provider Orthopaedic Surgery
DX: M25.511 Pain in right shoulder (principal)
CPT/HCPCS: 73030